=== PATIENT | male | born 1985 | race Two or more races ===

== ENCOUNTER 2016-12-16 14:38 | Emergency (ER) | payer OTHER ==
[~2016-12-16] VITALS: Ht 175.3 cm; Wt 68.5 kg
[2016-12-16 14:48] VITALS: BP 117/67
--- NOTE | 2016-12-16 15:25 | Emergency Room Report ---
History of Present Illness General Chief Complaint: Sore Throat Source: Patient Present Illness HPI 31 YO Male presents to the ED c/o : sore throat burning sensation worse at night x 1 month, with raspy voice, no fevers, dry intermittent cough. hx of seasonal allergies, denies rhinorrhea, MARTIN, night sweats, swollen tonsils. Patient states that he is not currently having pain in the throat however when it does occur the burning sensation is 10 out of 10 in severity and he has been using Chloraseptic [place] which provides minimal relief and only temporary relief. Patient denies recent travel or ill contacts. denies changes in weight. Pt reports URI two weeks ago and has been having intermittent wheezing as well. denies neck pain/stiffness. Denies CP, Palpitations, LOC, AMS, dizziness, Changes in Vision, Sensation, paresthesias, or a sudden severe headache. Allergies: Coded Allergies: No Known Allergies (Unverified , 12/16/16) Patient History Past Medical History: see triage record Past Surgical History: none Pertinent Family History: none Immunizations: UTD Reviewed Nursing Documentation: PMH: Agreed, PSxH: Agreed Nursing Documentation-PMH Past Medical History: No History, Except For Review of Systems All Other Systems: negative except mentioned in HPI Physical Exam Vital Signs Date Time Temp Pulse Resp B/P Pulse Ox O2 Delivery O2 Flow Rate FiO2 12/16/16 14:48 97.2 54 16 117/67 99 Room Air Sp02 EP Interpretation: reviewed, normal General Appearance: no apparent distress, alert, GCS 15, non-toxic Head: normocephalic, atraumatic Eyes: bilateral eye PERRL, bilateral eye normal inspection ENT: hearing grossly normal, normal pharynx, no angioedema, TMs + canals normal , uvula midline, moist mucus membranes, pharyngeal erythema, other - voice is raspy Neck: full range of motion, thyroid normal, no meningismus, no bony tend, supple/symm/no masses Respiratory: normal breath sounds, speaking full sentences, wheezing - expiratory wheezes Cardiovascular #1: regular rate, rhythm, no edema Rectal: deferred Musculoskeletal: back normal, gait/station normal, normal range of motion, non- tender Neurologic: alert, oriented x3, responsive, motor strength/tone normal, sensory intact, speech normal Psychiatric: judgement/insight normal, memory normal, mood/affect normal Skin: normal color, no rash, warm/dry, well hydrated Lymphatic: no adenopathy Medical Decision Making PA Attestation Dr. Oropeza is my supervising Physician whom patient management has been discussed with. Diagnostic Impression: Primary Impression: Laryngitis Additional Impression: Seasonal allergies Qualified Codes: J30.2 - Other seasonal allergic rhinitis ER Course Pt. presents to the ED c/o : sore throat burning sensation worse at night x 1 month, with raspy voice, no fevers, dry intermittent cough. hx of seasonal allergies, denies rhinorrhea, MARTIN, night sweats, swollen tonsils. Ddx considered but are not limited to: pharyngitis, strep, DEVELOPMENT CHEMIST, ludwigs angina, URI, laryngitis, Post nasal drip, GERD, thyroid disorder. Vital signs: are WNL, pt. is afebrile H&PE are most consistent with: laryngitis most likely secondary to untreated GERD> pt. depicts working late and eating at 12pm just prior to bed, and throat pain worse at night, with dry intermittent cough throughout the day. pt.also reports seasonal allergies, pnd suspected, however HPI more consistent with GERD. scant wheezes ascultated will give albuterol. ORDERS: None required at this time as the diagnosis is clinical ED INTERVENTIONS: none required at this time. -D/w pt. to remain upright up to two hours after eating, d/w pt. proper follow up with his PCP dr. Dsouza, and to return to ED with any worsening of symptoms. DISCHARGE: At this time pt. is stable for d/c to home. Will provide printed patient care instructions, and any necessary prescriptions. Care plan and follow up instructions have been discussed with the patient prior to discharge. Last Vital Signs Date Time Temp Pulse Resp B/P Pulse Ox O2 Delivery O2 Flow Rate FiO2 12/16/16 14:48 97.2 16 117/67 99 Room Air 12/16/16 14:48 54 Disposition: HOME, SELF-CARE Condition: Stable Scripts Prednisone* (PREDNISONE*) 20 Mg Tablet 40 MG ORAL DAILY for 5 Days, #10 TAB Prov: Amber Fuller P.A. 12/16/16 Lidocaine HCl (Lidocaine HCl Viscous) 100 Ml Solution 15 ML PO PRN Y for For Pain, #120 ML Prov: Amber Fuller P.A. 12/16/16 Albuterol Sulfate* (ALBUTEROL SULFATE MDI*) 8.5 Gm Hfa.aer.ad 2 PUFF INH Q3H, #1 INH 0 Refills Prov: Amber Fuller 12/16/16 Cetirizine Hcl* (ZYRTEC*) 10 Mg Tablet 10 MG ORAL DAILY, #30 TAB 0 Refills Prov: Amber Fuller 12/16/16 Ranitidine Hcl* (ZANTAC*) 150 Mg Tablet 150 MG ORAL QHS, #30 TAB 0 Refills Prov: Amber Fuller 12/16/16 Referrals: [facility],REFERRING (PCP) Patient Instructions: Food Choices for Gastroesophageal Reflux Disease, Adult, [id number], Gastroesophageal Reflux Disease, Adult, [id number], Laryngitis Additional Instructions: Take medications as directed. Follow up with PCP in 3-5 days Return sooner to ED if new symptoms occur, or current symptoms become worse. - Please note that this Emergency Department Report was dictated using [employer] room manager technology software, occasionally this can lead to erroneous entry secondary to interpretation by the dictation equipment. Amber Fuller Dec 16, 2016 15:25
[2016-12-16] MEDS ORDERED: PREDNISONE20 MG ORAL (15:28)
[2016-12-16] MEDS ORDERED: ZANTAC150 MG ORAL (15:28)
[2016-12-16] MEDS ORDERED: ALBUTEROL SULF8.5 GM INH (15:28)
[2016-12-16] MEDS ORDERED: ZYRTEC10 MG ORAL (15:28)
[2016-12-16] MEDS ORDERED: LIDOCAINE VISCO20 ML PO (15:28)
[2016-12-16 15:35] VITALS: BP 120/77
== END 2016-12-16 15:37 | disposition home or self-care (01) ==
LOC: EMR 15:15
DX: J04.0 Acute laryngitis (principal); J30.2 Other seasonal allergic rhinitis; R05 Cough
CPT/HCPCS: 99284